=== PATIENT | male | born 1985 | race Caucasian/White ===

== ENCOUNTER 2020-02-07 02:15 | Outpatient (CLI) | payer OTHER, SELFPAY ==
--- NOTE | 2020-02-07 | DI.CT_ITS ---
EXAM: CT NECK W CLINICAL HISTORY: LUMP IN NECK, R22.1. TECHNIQUE: Imaging Protocol: Axial computed tomography images with coronal and sagittal reformatted images were created and reviewed CONTRAST MATERIAL: Intravenous: Omnipaque 350 Contrast volume:100 mL contrast route:IV - Oral: No COMPARISON: No exams were available for comparison FINDINGS: Parotids/submandibular/thyroid gland: Normal. Lymphadenopathy: Mildly enlarged lymph nodes are seen in the left neck from the level of the angle o f the mandible into the supraclavicular region. Carotids/Jugular: Within normal limits. Soft tissues: The floor the mouth is unremarkable. The epiglottis and vocal cords are within normal limits. Images through both lung apices are unremarkable. There is a soft tissue mass seen at the angle of the left mandible anterior to the sternocleidomastoi d muscle. It measures 2.8 AP by 2.8 transverse by 5.5 cm craniocaudad. Internal vascularity is seen . It is slightly hyperdense to the adjacent muscle. There is a 2nd large similar mass which lies po sterior to the sternocleidomastoid muscle on the left just below the level of the carotid bifurcation . It measures 2.5 transverse by 2.3 AP by 2.7 cm craniocaudad. A 3rd mass more inferiorly measures 1.4 cm transverse by 1.9 cm AP x 1.9 cm craniocaudad. Bones: Unremarkable. Lung apices: Clear. Thyroid: Unremarkable. IMPRESSION: Enlarged masses in the left neck as described above. Primary diagnostic concern is cervical adenopat hy. Findings may reflect inflammatory/infectious process. Neoplasm cannot be entirely excluded. RADIATION DOSE DELIVERED: DATA REPOSITORY: All CT scans at this facility are submitted to the National Radiology Data Registry (NRDR) Dose Index Registry (DIR) with the [employer] ([employer]). RADIATION OPTIMIZATION: All CT scans at this facility use at least one of these dose optimization te chniques: automated exposure control; mA and/or kV adjustment per patient size (includes targeted exa ms where dose is matched to clinical indication); or iterative reconstruction.
[2020-02-07] MEDS: Normal Saline - Diluent 50 ML VIAL IV (09:06)
[2020-02-07] MEDS: Omnipaque 350 MG/ML 100 ML BTL IJ (09:06)
== END 2020-02-07 02:35 ==
PROVIDERS: PCP Family Medicine; Visit Provider Otolaryngology Otolaryngology/Facial Plastic Surgery
DX: R22.1 Localized swelling, mass and lump, neck (principal); R59.0 Localized enlarged lymph nodes
CPT/HCPCS: 70491; J3490

== ENCOUNTER 2020-02-17 02:03 | Outpatient (CLI) | payer OTHER, SELFPAY ==
--- NOTE | 2020-02-17 | DI.US_ITS ---
EXAM: US NEEDLE LOCAL OTHER WO RAD CLINICAL HISTORY: NECK LUMP, R22.1, FINE NEEDLE ASPIRATION TECHNIQUE: Ultrasound performed using standard protocol. COMPARISON: No exams were available for comparison FINDINGS: Ultrasound guidance was provided for needle biopsy of thyroid performed by LUCINDA Soto. Jc rosanne copies show needle placement in left thyroid lobe mass. DATA REPOSITORY:
--- NOTE | 2020-02-17 10:25 | PAPNONF_PTH ---
PATIENT: Sal Reyna LOC: [facility] U#:[id number] AGE/SX: 34/M ROOM: RE02/17/[address]: LUCINDA Soto : 1985 BED: DIS: 02/17/2020 SPEC #: [id number] RECD: 02/17/20 12:40 STATUS: CHADTyesha REQ #: [id number] ARLETTE: 02/17/20 10:[address]: Adrian Petty DEPT: [facility] Cytology RECD BY: Wendy Gordon ENTERED: 02/17/20 12:42 SP TYPE: AMANDA HUNTER DR: Phillip Amaya DO Tissues: 1 - BODY FLUID CYTO-FINE NEEDLE ASPIRATE-[facility] 2 - BODY FLUID CYTO-FINE NEEDLE ASPIRATE-[facility] Procedures: IMMUNOPEROXIDASE STAIN CYTOLOGY CELL BLOCK BODY FLUID CYTO-FINE NEEDLE ASPIRATE-[facility] Comments: [id number]
== END 2020-02-17 02:23 ==
PROVIDERS: PCP Family Medicine; Visit Provider Physician Assistant
DX: R22.1 Localized swelling, mass and lump, neck (principal); R59.0 Localized enlarged lymph nodes
CPT/HCPCS: 10005; 10006; 76942; 88104; 88305; 88361

== ENCOUNTER 2020-03-05 01:32 | Outpatient (CLI) | payer OTHER, SELFPAY ==
[2020-03-05 09:34] LABS: Absolute Basophil Count 0.01 k/cumm (0.0-0.2); Absolute Eosinophil Count 0.06 k/cumm (0.0-0.7); Absolute Lymphocyte Count 0.91 k/cumm (1.2-3.4); Absolute Neutrophil Count 2.02 k/cumm (1.2-6.7); Basophils % 0.3; Eosinophils % 1.8; HCT 42.3 % (40.0-50.0); Lymphocytes % 26.8; Mean Corp. HGB Concentration 35.5 g/dL (32.0-36.0); Mean Corpuscular Hemoglobin 30.2 pg (27.0-33.0); Mean Corpuscular Volume 85.1 fL (80-95); Monocytes % 11.8; Neutrophils % 59.3; Platelet Count 220 x1000/uL (130-400); RBC 4.97 m/cumm (4.50-6.00); RBC Distribution Width 12.4 % (11.8-14.1)
[2020-03-05 10:04] LABS: ALT 41 U/L (16-63); AST 21 U/L (15-37); Albumin 3.9 g/dL (3.4-5.0); Alkaline Phosphatase 83 U/L (46-116); Anion Gap 7.4 mmol/L (3-11); BUN 20 mg/dL (7-18); Bilirubin, Total 0.5 mg/dL (0.2-1.0); CO2 29.6 mmol/L (21.0-32.0); CREATININE 0.96 mg/dL (0.70-1.30); Calcium 9.2 mg/dL (8.5-10.1); Chloride 106 mmol/L (98-107); Glucose 93 mg/dL (74-106); Potassium 3.9 mmol/L (3.5-5.1); Sodium 143 mmol/L (136-145); Total Protein 6.8 g/dL (6.4-8.2)
[2020-03-05 10:39] LABS: ESR 4 mm/hr (0-15)
[2020-03-06 10:46] LABS: Hepatitis B Surface Ag Negative (Negative)
[2020-03-06 11:18] LABS: HIV-1/2 Ag & Ab Screen Negative (Negative); Hepatitis C Ab w Rflx HCV PCR Negative (Negative)
== END 2020-03-05 01:52 ==
PROVIDERS: PCP Family Medicine; Visit Provider Physician Assistant
DX: C81.91 Hodgkin lymphoma, unspecified, lymph nodes of head, face, and neck (principal)
CPT/HCPCS: 36415; 80053; 85652; 86803; 87340; 87389; 85025; 86704; 87350

== ENCOUNTER 2020-04-09 09:27 | Outpatient (CLI) | payer OTHER, SELFPAY ==
[2020-04-10 15:32] LABS: COVID-19 RT-PCR Result NEGATIVE (Negative)
== END 2020-04-09 09:47 ==
PROVIDERS: PCP Family Medicine; Visit Provider Otolaryngology Otolaryngology/Facial Plastic Surgery
DX: Z11.59 Encounter for screening for other viral diseases (principal); Z01.818 Encounter for other preprocedural examination
CPT/HCPCS: U0003

== ENCOUNTER 2020-04-13 06:20 | Day surgery (SDC) | payer OTHER, SELFPAY ==
[2020-04-13 06:38] VITALS: BP 128/79; PULSE 71; RESP 16; TEMP 36.6; O2SAT 98
[2020-04-13] MEDS: Lactated Ringers 1,000 ML 80 ML IV (07:00)
--- NOTE | 2020-04-13 07:40 | W.PM.OP ---
Operative Note Operative Note DATE OF PROCEDURE: 04/13/20 PRE-OP DIAGNOSIS: nasal obstruction, turb. hypertrophy POST-OP DIAGNOSIS: same PROCEDURE: NSR, SMRIT SURGEON: Don Owens ANESTHESIA: GETA PATHOLOGY: none sent COMPLICATIONS: None Patient was transported to: PACU Patient's condition: stable
--- NOTE | 2020-04-13 07:42 | ROE_ITS ---
Operative Note Operative Note DATE OF PROCEDURE: 04/13/20 PRE-OP DIAGNOSIS: Chronic nasal obstruction, NSD, turb hypertropy POST-OP DIAGNOSIS: same PROCEDURE: NSR, SMRIT ANESTHESIA: GETA PATHOLOGY: none sent Patient was transported to: PACU Patient's condition: stable Implants: NSR, SMRIT Procedure Description: Patient was brought back to the operating suite in stable condition. Placed supine on the operating table. Timeout was taken to confirm proper patient and procedure. The nose was localized with 10 cc 1% lidocaine with 1-1000 epinephrine followed by Afrin-soaked pledgets. Patient was prepped and draped in normal fashion. [place]'s type incision was made in the left septal mucosa
[2020-04-13] MEDS: Oxymetazolone 0.05% SPRAY 15 ML BTL (08:46)
--- NOTE | 2020-04-13 08:51 | ROE_ITS ---
Operative Note Operative Note DATE OF PROCEDURE: 04/13/20 PRE-OP DIAGNOSIS: Chronic nasal obstruction with septal deviation and inferior turbinate hypertrophy POST-OP DIAGNOSIS: same PROCEDURE: NSR, SMRIT ANESTHESIA: GETA ESTIMATED BLOOD LOSS: 5.0 PATHOLOGY: none sent Patient was transported to: PACU Patient's condition: stable Implants: NSR, SMRIT Indications: Chronic nasal obstruction Findings: Severe nasal septal deviation to the left with inferior turbinate hypertrophy bilaterally Procedure Description: Patient was brought back to the operating suite in stable condition placed supine on operative table and intubated in normal fashion. The table was rotated 90 degrees. Timeout was taken to confirm proper patient procedure. Patient was prepped and draped in sterile fashion. A total of 13 cc of 1% lidocaine with 1 1000 epinephrine was injected into the septal mucosa and inferior turbinate. There was 100% obstruction of the left nare with severe nasal septal deviation contacting the left lateral nasal wall. [place] stab incision was made on the left septal mucosal crossover incision to the cartilage was made with septal knife. Bilateral subperichondrial flaps were elevated off the septal cartilage. Numerous pieces were excised bleeding posteriorly to the vomer. The cartilage deflection was relieved. There was only a small tear to the mucosa on the left side not through and through. All the septal obstructions were removed. The subperichondrial flaps were reapproximated with 4-0 plain gut suture. Next a 15 blade scalpel was used to incise the anterior face of the inferior turbinates bilaterally a 2.0 mm inferior turbinate blade was used to reduce the obstructive bone and soft tissue followed by outfracture with stair elevator. There was no significant internal nasal valve collapse noted preoperatively. The inferior turbinate stab incisions were closed with 4- 0 plain gut suture. All anatomy was midline wide patency to the nare postoperatively. Bactroban covered Werner splints were placed sutured to the columella with 2-0 silk suture. Total blood loss was 5 cc patient was stable to PACU without complication or excessive bleeding.
[2020-04-13 09:10] VITALS: BP 143/68; PULSE 78; RESP 10; TEMP 36.7; O2SAT 97
[2020-04-13 09:15] VITALS: BP 146/86; PULSE 72; RESP 10; TEMP 36.7; O2SAT 97
[2020-04-13 09:20] VITALS: BP 132/74; PULSE 74; RESP 16; TEMP 36.7; O2SAT 98
[2020-04-13 09:35] VITALS: BP 154/88; PULSE 70; RESP 12; TEMP 36.7; O2SAT 98
[2020-04-13 10:22] VITALS: BP 137/87; PULSE 56; RESP 18; TEMP 36.3; O2SAT 99
== END 2020-04-13 10:45 | disposition home or self-care (01) ==
PROVIDERS: PCP Family Medicine; Visit Provider Otolaryngology Otolaryngology/Facial Plastic Surgery
PROC: (CPT 30520; principal; 2020-04-13 07:30)
DX: J34.89 Other specified disorders of nose and nasal sinuses (principal); J34.2 Deviated nasal septum; J34.3 Hypertrophy of nasal turbinates
CPT/HCPCS: 30520; 30140; J0131; J1100; J2001; J2250; J2405; J3010

== ENCOUNTER 2020-07-31 03:57 | Outpatient (CLI) | payer OTHER, SELFPAY ==
[2020-07-31 15:42] LABS: Abs Immature Grans 0.01 10^3/uL (0.0-0.06); Absolute Basophil Count 0.03 10^3/uL (0.0-0.2); Absolute Eosinophil Count 0.05 10^3/uL (0.0-0.7); Absolute Lymphocyte Count 0.51 10^3/uL (1.2-3.4); Absolute Neutrophil Count 2.54 10^3/uL (1.2-6.7); Basophils % 0.8; Eosinophils % 1.4; HCT 42.6 % (40.0-50.0); Immature Grans % 0.3; Lymphocytes % 14.4; MCH 29.5 pg (27.0-33.0); MCHC 35.2 % (32.0-36.0); MCV 83.9 fL (80-95); MPV 9.9 fL (8.0-11.0); Monocytes % 11.3; Neutrophils % 71.8; Nucleated RBC 0 %; Platelet Count 194 10^3/uL (130-400); RBC 5.08 10^6/uL (4.36-5.78); RDW 11.8 % (11.8-14.1); RDW-SD 35.8 fL; WBC 3.54 10^3/uL (4.4-10.8)
[2020-07-31 16:24] LABS: ESR 6 mm/hr (0-15)
[2020-07-31 17:02] LABS: ALT 27 U/L (16-63); AST 14 U/L (15-37); Albumin 4.5 g/dL (3.4-5.0); Alkaline Phosphatase 70 U/L (46-116); Anion Gap 7.4 mmol/L (3-11); BUN 15 mg/dL (7-18); Bilirubin, Total 0.9 mg/dL (0.2-1.0); CO2 30.6 mmol/L (21.0-32.0); CREATININE 1.13 mg/dL (0.70-1.30); Calcium 9.5 mg/dL (8.5-10.1); Chloride 104 mmol/L (98-107); Glucose 90 mg/dL (74-106); LDH 139 U/L (85-227); Potassium 3.9 mmol/L (3.5-5.1); Sodium 142 mmol/L (136-145); Total Protein 7.2 g/dL (6.4-8.2)
== END 2020-07-31 04:17 ==
PROVIDERS: PCP Family Medicine; Visit Provider Internal Medicine Hematology & Oncology
DX: C81.91 Hodgkin lymphoma, unspecified, lymph nodes of head, face, and neck (principal)
CPT/HCPCS: 36415; 80053; 85652; 83615; 85025

== ENCOUNTER 2020-11-18 13:56 | Outpatient (REF) | payer OTHER, SELFPAY ==
[2020-11-19 12:04] LABS: COVID-19 RT-PCR UVMMC Result Negative (Negative)
== END 2020-11-18 14:16 ==
LOC: LBN 13:56
PROVIDERS: PCP Family Medicine; Visit Provider Nurse Practitioner Adult Health
DX: Z11.59 Encounter for screening for other viral diseases (principal)
CPT/HCPCS: U0003

== ENCOUNTER 2022-10-27 14:08 | Outpatient (REF) | payer OTHER, SELFPAY ==
[2022-10-28 16:15] LABS: Appearance Normal; Container Type 50 mL Conical; Sperm/mL 0 sperm seen x10(6) (>=15.0); Study Type Semen; pH 7.5 (>=7.2)
== END 2022-10-27 14:09 | disposition home or self-care (01) ==
LOC: LBN 14:08
PROVIDERS: PCP Family Medicine; Visit Provider Family Medicine
DX: Z31.69 Encounter for other general counseling and advice on procreation (principal)
CPT/HCPCS: 89240; 89310

== ENCOUNTER 2022-12-13 14:51 | Outpatient (CLI) | payer OTHER, SELFPAY ==
[2022-12-13 15:45] LABS: Abs Immature Grans 0.01 10^3/uL (0.0-0.06); Absolute Basophil Count 0.02 10^3/uL (0.0-0.2); Absolute Eosinophil Count 0.06 10^3/uL (0.0-0.7); Absolute Lymphocyte Count 0.99 10^3/uL (1.2-3.4); Absolute Monocyte Count 0.42 10^3/uL (0.1-0.8); Absolute Neutrophil Count 2.72 10^3/uL (1.2-6.7); Basophils % 0.5; Eosinophils % 1.4; HCT 43.1 % (40.0-50.0); HGB 14.8 g/dL (13.5-17.5); Immature Grans % 0.2; Lymphocytes % 23.5; MCH 29.5 pg (27.0-33.0); MCHC 34.3 % (32.0-36.0); MCV 86 fL (80-95); MPV 9.9 fL (8.0-11.0); Neutrophils % 64.4; Platelet Count 211 10^3/uL (130-400); RBC 5.01 10^6/uL (4.36-5.78); WBC 4.22 10^3/uL (4.4-10.8)
[2022-12-13 16:05] LABS: ALT 35 U/L (16-63); AST 20 U/L (15-37); Albumin 4.1 g/dL (3.4-5.0); Alkaline Phosphatase 70 U/L (46-116); Anion Gap 3.1 mmol/L (3-11); BUN 18 mg/dL (7-18); Bilirubin, Total 0.4 mg/dL (0.2-1.0); CO2 32.9 mmol/L (21.0-32.0); CREATININE 1.4 mg/dL (0.70-1.30); Chloride 107 mmol/L (98-107); Estimated GFR 67.22 (mL/min/1.73m2); Glucose 112 mg/dL (74-106); Potassium 3.9 mmol/L (3.5-5.1); Sodium 143 mmol/L (136-145); TSH 4.47 uIU/mL (0.36-3.74); Total Protein 7.2 g/dL (6.4-8.2)
[2022-12-13 16:16] LABS: ESR < 1 mm/hr (0-15)
[2022-12-13 22:16] LABS: Estradiol 26 pg/mL (<40)
[2022-12-13 22:33] LABS: FSH 7.5 mIU/mL (1.4-18.1); LH 5.1 mIU/mL (1.5-9.3)
[2022-12-16 14:43] LABS: Testosterone, Total 546 ng/dL (240-950)
== END 2022-12-13 14:52 | disposition home or self-care (01) ==
LOC: LBO 14:54
PROVIDERS: PCP Family Medicine; Visit Provider Internal Medicine Hematology & Oncology
DX: N46.01 Organic azoospermia (principal); C81.01 Nodular lymphocyte predominant Hodgkin lymphoma, lymph nodes of head, face, and neck
CPT/HCPCS: 36415; 80053; 84403; 85652; 82670; 83001; 83002; 84443; 85025

== ENCOUNTER 2023-03-13 02:27 | Outpatient (CLI) | payer OTHER, SELFPAY ==
[2023-03-14 20:00] LABS: Hepatitis B Surface Ag Negative (Negative)
[2023-03-14 20:30] LABS: Hepatitis C Ab w Rflx HCV PCR Negative (Negative)
[2023-03-14 20:32] LABS: HIV-1/2 Ag & Ab Screen Negative (Negative)
[2023-03-14 20:35] LABS: Hep B Core Antibody Negative (Negative)
[2023-03-15 11:07] LABS: Syphilis Serology (RPR) Negative (Negative)
== END 2023-03-13 02:28 | disposition home or self-care (01) ==
PROVIDERS: PCP Family Medicine; Visit Provider Urology
DX: N46.01 Organic azoospermia (principal); Z11.4 Encounter for screening for human immunodeficiency virus [HIV]; Z11.59 Encounter for screening for other viral diseases
CPT/HCPCS: 36415; 86704; 86803; 87340; 87389; 86592

== ENCOUNTER 2023-05-24 02:47 | Outpatient (CLI) | payer OTHER, SELFPAY ==
[2023-05-24 14:35] LABS: FREE T4 0.86 ng/dL (0.76-1.46); TSH 3.57 uIU/mL (0.36-3.74)
[2023-05-25 18:50] LABS: T3, Total 157 ng/dL (97-169)
== END 2023-05-24 02:48 | disposition home or self-care (01) ==
LOC: LBO 02:47
PROVIDERS: Nurse Practitioner Adult Health; PCP Family Medicine; Visit Provider Family Medicine
DX: R94.6 Abnormal results of thyroid function studies (principal)
CPT/HCPCS: 36415; 84439; 84443; 84480

== ENCOUNTER 2024-11-22 12:15 | Outpatient (CLI) | payer OTHER, SELFPAY ==
[2024-11-22 14:24] LABS: TSH 2.51 uIU/mL (0.36-3.74)
== END 2024-11-22 12:16 | disposition home or self-care (01) ==
PROVIDERS: PCP Family Medicine; Visit Provider Family Medicine
DX: R79.89 Other specified abnormal findings of blood chemistry (principal)
CPT/HCPCS: 36415; 84443